=== PATIENT | female | born 1995 | race Caucasian/White ===

== ENCOUNTER 2016-06-06 23:42 | Emergency (ER) | payer OTHER ==
[~2016-06-06] VITALS: Ht 152.4 cm; Wt 63.2 kg
[2016-06-06 23:47] VITALS: TEMP 36.7; O2SAT 94; Ht 152.4 cm; Wt 63.2 kg
[2016-06-07 00:29] LABS: BASO % 0.2 %; BASO ABS # 0.02 K/uL (0-0.2); COMPLETE YES; EOS % 0.2 %; HEMATOCRIT 37.1 % (37-47); IG% 0.3 %; LYMPH % 15.2 %; MEAN CELL VOLUME 89.6 fL (80-100); MEAN CORPUSCULAR HEMOGLOBIN 30.7 pg (25-34); MEAN CORPUSCULAR HGB CONC 34.2 g/dl (32-36); MEAN PLATELET VOLUME 9.3 fL (7.4-10.4); MONO % 8.1 %; PLATELET COUNT 337 K/uL (130-400); RED BLOOD COUNT 4.14 M/uL (4.2-5.4); WHITE BLOOD COUNT 12.48 K/uL (4.8-10.8)
[2016-06-07 00:43] LABS: VEN BLD GAS O2 SATURATION < 60.0 %; VEN BLOOD GAS BASE EXCESS 0.6 mmol/L; VENOUS BLOOD GAS PCO2 59 mmHg (38.0-50.0); VENOUS BLOOD GAS PO2 28 mmHg
[2016-06-07 01:01] LABS: BUN/CREATININE RATIO 19.5 (10-20); CALCIUM 8.8 mg/dl (8.5-10.1); CREATININE 0.71 mg/dl (0.60-1.20)
[2016-06-07 01:06] LABS: POTASSIUM 3.6 mmol/L (3.5-5.1)
[2016-06-07 01:07] LABS: PREG INTERNAL NEGATIVE QC NEG CLEAR BACKGROUND; PREG INTERNAL POSITIVE QC POS CONTROL LINE
[2016-06-07 03:59] VITALS: BP 104/61; PULSE 91; O2SAT 98
--- NOTE | 2016-06-07 04:05 | EMERGENCY ROOM VISIT NOTE ---
History First contact with patient: 23:51 Chief Complaint: OVERDOSE (ACCIDENTAL) Stated Complaint: OVERDOSE Nursing Triage Summary: pt states she just got out of rehab last week and tonight she used heroin for the first time in over 90 days, pt's younger brother found her unresponsive and called ems, by the time ems arrived pt was awake. pt stated she only used a little bit and she has used heroin off and on for years. History of Present Illness The patient is a 21 year old female who presents to the Emergency Room with complaints of accidental heroin overdose tonight. Patient states she's been clean for 3 months and just got out of rehabilitation. Patient states she shot up heroin tonight. She was not trying to overdose. She states she took a small amount. Patient states her little brother found her and called EMS. She was not given any Narcan or anything else. Patient states she shot up at 9 PM. Patient denies chest pain, dyspnea, fever, chills, abdominal pain or any other medical complaints. Patient states she feels back to normal. No other drugs tonight. No alcohol. Review of Systems See HPI for pertinent positives & negatives. A total of 10 systems reviewed and were otherwise negative. Past Medical/Surgical History Medical Problems: (1) Asthma (2) Gestational diabetes mellitus (3) Normal (4) Vaginal delivery Family History Diabetes mellitus FH: cancer FH: gallbladder disease FH: heart disease FH: lung disease Hypertension Social History Smoking Status: Current Every Day Smoker Alcohol Use: none Drug Use: heroin Marital Status: single Housing Status: lives with family Occupation Status: employed Current/Historical Medications Unable to Obtain Active Prescriptions or Reported Meds Allergies Coded Allergies: No Known Allergies (Unverified , 07/14/14) Physical Exam Vital Signs Date Time Temp Pulse Resp B/P Pulse Ox O2 Delivery O2 Flow Rate FiO2 06/07/16 02:30 89 17 93/53 95 Nasal Cannula 2.5 06/07/16 02:00 86 16 100/63 97 Nasal Cannula 2.5 06/07/16 01:30 86 9 96/53 94 Nasal Cannula 2.5 06/07/16 01:00 94 15 109/55 92 Nasal Cannula 2.5 06/07/16 00:30 103 12 103/62 92 Nasal Cannula 2.5 06/07/16 00:00 100 13 121/71 96 Nasal Cannula 2.5 06/06/16 23:55 107 2//17 23:47 36.7 106 14 127/70 94 Room Air 06/06/16 23:47 94 Room Air Physical Exam VITALS: Vitals are noted on the nurse's note and reviewed by myself. Vital signs stable. GENERAL: Pleasant female tearful, in no acute distress, nondiaphoretic, well- developed well-nourished. SKIN: Bilateral arms multiple track mcgowan The rest of the skin was without rashes, erythema, edema, or bruising. There is no tenting of the skin. Capillary reflex less than 2 seconds. HEAD: Normocephalic atraumatic. EARS: External auditory canals clear, tympanic membranes pearly lenz without erythema or effusion bilaterally. EYES: Pupils equal round and reactive to light and accommodation. Conjunctivae without injection, sclerae without icterus. Extraocular movements intact. NOSE: Patent, turbinates without inflammation or discharge. MOUTH: Mucous membranes moist. Pharynx without erythema or exudate. Uvula midline. Airway patent. Tongue does not deviate. NECK: Supple without nuchal rigidity. No lymphadenopathy. No thyromegaly. Cervical spine is nontender. No JVD. HEART: Regular rate and rhythm without murmurs gallops or rubs. LUNGS: Clear to auscultation bilaterally without wheezes, rales or rhonchi. No dullness to percussion. No retractions or accessory muscle use. ABDOMEN: Positive bowel sounds x 4. Normal tympanic percussion. Soft, nontender, without masses or organomegaly. Cedeno sign negative. No guarding or rebound tenderness. MUSCULOSKELETAL: No muscle atrophy, erythema, or edema noted. NEURO: Patient was alert and oriented to person place and time. Normal sensation to light and sharp touch. No focal neurological deficits. Medical Decision & Procedures Laboratory Results 06/07/16 00:00 Red Blood Count 4.14, Mean Corpuscular Volume 89.6, Mean Corpuscular Hemoglobin 30.7, Mean Corpuscular Hemoglobin Concent 34.2, Mean Platelet Volume 9.3, Neutrophils (%) (Auto) 76.0, Lymphocytes (%) (Auto) 15.2, Monocytes (%) (Auto) 8.1, Eosinophils (%) (Auto) 0.2, Basophils (%) (Auto) 0.2, Neutrophils # (Auto) 9.48, Lymphocytes # (Auto) 1.90, Monocytes # (Auto) 1.01, Eosinophils # (Auto) 0.03, Basophils # (Auto) 0.02 06/07/16 00:00 Test 06/07/16 00:00 06/07/16 00:05 06/07/16 00:35 White Blood Count 12.48 K/uL (4.8-10.8) Red Blood Count 4.14 M/uL (4.2-5.4) Hemoglobin 12.7 g/dL (12.0-16.0) Hematocrit 37.1 % (37-47) Mean Corpuscular Volume 89.6 fL (80-100) Mean Corpuscular Hemoglobin 30.7 pg (25-34) Mean Corpuscular Hemoglobin Concent 34.2 g/dl (32-36) Platelet Count 337 K/uL (130-400) Mean Platelet Volume 9.3 fL (7.4-10.4) Neutrophils (%) (Auto) 76.0 % Lymphocytes (%) (Auto) 15.2 % Monocytes (%) (Auto) 8.1 % Eosinophils (%) (Auto) 0.2 % Basophils (%) (Auto) 0.2 % Neutrophils # (Auto) 9.48 K/uL (1.4-6.5) Lymphocytes # (Auto) 1.90 K/uL (1.2-3.4) Monocytes # (Auto) 1.01 K/uL (0.11-0.59) Eosinophils # (Auto) 0.03 K/uL (0-0.5) Basophils # (Auto) 0.02 K/uL (0-0.2) RDW Standard Deviation 42.0 fL (36.4-46.3) RDW Coefficient of Variation 12.9 % (11.5-14.5) Immature Granulocyte % (Auto) 0.3 % Immature Granulocyte # (Auto) 0.04 K/uL (0.00-0.02) Anion Gap 10.0 mmol/L (3-11) Est Creatinine Clear Calc Drug Dose 102.3 ml/min Estimated GFR () 139.1 Estimated GFR (Non- 120.1 BUN/Creatinine Ratio 19.5 (10-20) Calcium Level 8.8 mg/dl (8.5-10.1) Human Chorionic Gonadotropin, Qual NEG (NEG) Ethyl Alcohol mg/dL < 3.0 mg/dl (0-3) Venous Blood pH 7.30 (7.36-7.41) Venous Blood Partial Pressure CO2 59 mmHg (38.0-50.0) Venous Blood Partial Pressure O2 28 mmHg Venous Blood HCO3 28 mmol/L Venous Blood Oxygen Saturation < 60.0 % Venous Blood Base Excess 0.6 mmol/L ED Course Prior records/ancillary studies reviewed. Triage Nursing notes reviewed. Additional history obtained from EMS The patient's history was concerning for heroin overdose Differential diagnosis: Etiologies such as toxicologic, infection, hypoglycemia, electrolyte abnormalities, cardiac sources, intracerebral event, neurologic, as well as others were entertained. Physical examination: The patient had normal sensorium. No trauma noted. ER treatment provided: Patient ate a full meal and drink without difficulties On reassessment the patient was stable and improving. Diagnostic interpretation by me: The labs revealed no worrisome anemia or electrolyte abnormality This appears to be consistent with an isolated overdose of heroin that was accidental. Patient was observed for multiple hours with no abnormalities. She was given information on drug and alcohol classes and rehabilitation. She declined rehabilitation today. Patient is advised follow-up family medicine in a few days or here in the ER sooner for chest pain, difficulty breathing, fevers , worsening signs or symptoms or as needed. By the evaluation outlined above emergent etiologies such as infection, hypoglycemia, electrolyte abnormalities, cardiac sources, intracerebral event, neurologic,as well as others were deemed relatively unlikely. The pt informed about the findings as listed above. All questions were answered and pleased with the treatment. Return instructions were outlined and the patient was discharged in stable condition. Referral: The patient was referred back to their primary care physician for follow-up in 2 to 3 days for a recheck of the current condition. Case reviewed with my attending Medical Decision As above Impression Primary Impression: Heroin overdose Departure Information Prescriptions Unable to Obtain Active Prescriptions or Reported Meds Referrals No Doctor, Assigned (PCP) Patient Instructions My [facility] Problem Qualifiers Primary Impression: Heroin overdose Encounter type: initial encounter Injury intent: accidental or unintentional Qualified Codes: T40.1X1A - Poisoning by heroin, accidental ( unintentional), initial encounter
== END 2016-06-07 04:13 | disposition home or self-care (01) ==
LOC: EDBD 23:42 → C.EDB 23:43
DX: T40.1X1A Poisoning by heroin, accidental (unintentional), initial encounter (principal); F17.200 Nicotine dependence, unspecified, uncomplicated

== ENCOUNTER 2016-06-18 18:08 | Emergency (ER) | payer OTHER ==
[~2016-06-18] VITALS: Ht 152.4 cm; Wt 60.5 kg
[2016-06-18 18:18] VITALS: Ht 152.4 cm; Wt 60.5 kg
[2016-06-18] MEDS ORDERED: AZITHROMYCIN 250 MG TAB PO STA (18:57)
[2016-06-18] MEDS ORDERED: CEFTRIAXONE SOD 350MG/ML 1 GM VIAL IM STA (18:57)
--- NOTE | 2016-06-18 19:31 | EMERGENCY ROOM VISIT NOTE ---
History First contact with patient: 18:36 Chief Complaint: PELVIC PAIN Stated Complaint: SEVERE ABDOMINAL PAIN History of Present Illness The patient is a 21 year old female who presents to the Emergency Room with complaints of vaginal discharge and vaginal sores. The patient states that she has one regular sexual partner. She does not use protection. The patient states that 2 days ago she noticed sores on her external genitalia and yellow vaginal discharge. She states she has had diffuse lower abdominal cramping. She rates her discomfort a 6/10. She states her last period was 2 weeks ago. She denies any nausea or vomiting. She denies any fevers. She denies any dysuria, urgency or frequency. She denies any history of sexual transmitted infection. Review of Systems A 10 system review of systems was completed with positives and pertinent negatives listed in the HPI. Past Medical/Surgical History Medical Problems: (1) Asthma (2) Gestational diabetes mellitus (3) Normal (4) Vaginal delivery Family History Diabetes mellitus FH: cancer FH: gallbladder disease FH: heart disease FH: lung disease Hypertension Social History Smoking Status: Current Every Day Smoker Alcohol Use: none Drug Use: heroin Marital Status: single Housing Status: lives with family Occupation Status: employed Current/Historical Medications Scheduled Acyclovir (Acyclovir), 1 TAB PO TID Cephalexin Monohydrate (Keflex), 500 MG PO QID Doxycycline (Monohydrate) (Doxycycline Monohydrate), 100 MG PO BID Allergies Coded Allergies: No Known Allergies (Unverified , 07/14/14) Physical Exam Vital Signs Date Time Temp Pulse Resp B/P Pulse Ox O2 Delivery O2 Flow Rate FiO2 06/18/16 20:35 108 18 124/76 99 06/18/16 19:59 37.2 06/18/16 18:18 37.7 107 20 132/77 100 Room Air Physical Exam VITALS: Vitals are noted on the nurse's note and reviewed by myself. Vital signs stable. GENERAL: This is a 21-year-old female, in no acute distress, nondiaphoretic, well-developed well-nourished. SKIN: The patient has pinpoint excoriations diffusely over the lower extremities which she states that she "picks." There is no tenting of the skin. Capillary reflex less than 2 seconds. HEAD: Normocephalic atraumatic. EARS: External auditory canals clear, tympanic membranes pearly lenz without erythema or effusion bilaterally. EYES: Pupils equal round and reactive to light and accommodation. Conjunctivae without injection, sclerae without icterus. Extraocular movements intact. NOSE: Patent, turbinates without inflammation or discharge. MOUTH: Mucous membranes moist. Tonsils are not enlarged. Pharynx without erythema or exudate. Uvula midline. Airway patent. Tongue does not deviate. NECK: Supple without nuchal rigidity. No JVD. HEART: Regular rate and rhythm without murmurs gallops or rubs. LUNGS: Clear to auscultation bilaterally without wheezes, rales or rhonchi. No retractions or accessory muscle use. ABDOMEN: Positive bowel sounds x 4. Soft, mild diffuse lower tenderness, without masses or organomegaly. Cedeno sign negative. : There are multiple ulcerated lesions over the external genitalia. There are tender to palpation. There is scant yellow vaginal discharge. There is no cervical motion tenderness. There are no adnexal masses or tenderness. MUSCULOSKELETAL: No muscle atrophy, erythema, or edema noted. Full range of motion in all extremities. Normal gait. Strength 5/5 throughout. NEURO: Patient was alert and oriented to person place and time. No focal neurological deficits. Medical Decision & Procedures Laboratory Results Test 06/18/16 18:15 06/18/16 18:50 Urine Color DK YELLOW Urine Appearance CLOUDY (CLEAR) Urine pH 6.0 (4.5-7.5) Urine Specific [place] 1.024 (1.000-1.030) Urine Protein 1+ (NEG) Urine Glucose (UA) NEG (NEG) Urine Ketones 1+ (NEG) Urine Occult Blood TRACE (NEG) Urine Nitrite POS (NEG) Urine Bilirubin NEG (NEG) Urine Urobilinogen POS (NEG) Urine Leukocyte Esterase MODERATE (NEG) Urine WBC (Auto) >30 /hpf (0-5) Urine RBC (Auto) 0-4 /hpf (0-4) Urine Hyaline Casts (Auto) 1-5 /lpf (0-5) Urine Epithelial Cells (Auto) >30 /lpf (0-5) Urine Bacteria (Auto) 4+ (NEG) Urine Pathogenic Casts /lpf (0) Urine Test NEG (NEG) Date/Time Source Procedure Growth Status 06/18/16 18:50 Vaginal Swab Trichomonas Preparation - Final Complete Medications Administered Medications (Trade) Dose Ordered Sig/Keyshawn Route Start Time Stop Time Status Last Admin Dose Admin Azithromycin (Zithromax Tab) 1,000 mg NOW STAT PO 06/18/16 18:57 06/18/16 18:59 DC 06/18/16 19:08 1,000 MG Ceftriaxone Sodium (Rocephin Im) 250 mg NOW STAT IM 06/18/16 18:57 06/18/16 18:59 DC 06/18/16 19:08 250 MG ED Course The patient was seen and examined. Previous visits were reviewed. The patient initially had a very low-grade fever. However, I rechecked her temperature and nursing staff rechecked her temperature and it was normal. She does not have any significant abdominal tenderness to suggest acute abdomen. The patient appears to have an outbreak of primary genital herpes. She also has vaginal discharge. She does engage in unprotected intercourse. She reports 1 partner. The patient was given 250 mg IM Rocephin She was given 1 g oral Zithromax She will be placed on Keflex for potential urinary tract infection. This may represent true urinary tract infection versus possible contamination She'll be placed on doxycycline to cover for potential PID She'll be given a prescription for acyclovir. She was advised to notify her sexual contacts. She was advised to follow-up with [facility], her family doctor or local free clinic for additional testing or counseling. She should return to the ER if any worsening symptoms. Medical Decision DIFFERENTIAL DIAGNOSIS: Pelvic inflammatory disease, ovarian cyst, ovarian torsion, ovarian rupture, , ectopic , endometriosis, endometritis, urinary tract infection, ruptured ovarian cyst, tubo-ovarian abscess, among others. Impression Primary Impression: Herpes Additional Impression: Vaginal discharge Departure Information Dispostion Home / Self-Care Condition GOOD Prescriptions Cephalexin Monohydrate (Keflex) 500 Mg Cap 500 MG PO QID for 5 Days, #20 CAP Prov: Leana Harris PA-C 06/18/16 Doxycycline (Monohydrate) (DOXYCYCLINE MONOHYDRATE) 100 Mg Tab 100 MG PO BID for 14 Days, #28 CAP Prov: Leana Harris PA-C 06/18/16 Acyclovir (ACYCLOVIR) 400 Mg Tab 1 TAB PO TID for 10 Days, #30 TAB Prov: Leana Harris PA-C 06/18/16 Referrals No Doctor, Assigned (PCP) Patient Instructions Herpes, My [facility] Additional Instructions Ibuprofen 600 mg every 6-8 hours for pain Acyclovir every 8 hours for 10 days to treat the primary outbreak of herpes Doxycycline every 12 hours for 14 days to treat potential pelvic infection Let your sexual contacts know of the potential sexually transmitted infection You may contact the emergency department [phone] to check on the results of the cultures if you wish in 5-7 days Return with any worsening symptoms Follow-up with [facility]/family doctor/free clinics for additional testing Problem Qualifiers
[2016-06-18 19:47] LABS: URINE APPEARANCE CLOUDY (CLEAR); URINE COLOR DK YELLOW; URINE EPITHELIAL CELL AUTO >30 /lpf (0-5); URINE NITRITE POS (NEG); URINE SPECIFIC GRAVITY 1.024 (1.000-1.030); UROBILINOGEN POS (NEG); ZZUR CULT IF INDIC CLEAN CATCH YES
[2016-06-18 19:59] VITALS: TEMP 37.2
[2016-06-18 20:00] LABS: MANUAL MICROSCOPIC REQUIRED? NO; REVIEW REQ? YES; URINE BILIRUBIN NEG (NEG)
[2016-06-18] MEDS ORDERED: DOXY100T17 PO (20:04)
[2016-06-18] MEDS ORDERED: ACYC400T PO (20:04)
[2016-06-18] MEDS ORDERED: CEPH500C PO (20:11)
[2016-06-18 20:35] VITALS: BP 124/76; PULSE 108; O2SAT 99
--- NOTE | 2016-06-20 12:02 | Pharmacy Progress Note ---
ED Pharmacist Culture FollowUp Date of Service: Jun 20, 2016. Patient was sent home with a prescription for Keflex 500mg PO QID x 5 days, which should cover the E coli growing from the patient's URINE culture. No action required at this time.
[2016-06-21 00:25] LABS: CHLAMYDIA TRACH RNA*** NOT DETECTED (NOT DETECTED); GC (NEIS GONORRHOEAE)RNA** NOT DETECTED (NOT DETECTED)
[2016-06-24 14:48] LABS: HERPES SIMPLEX CULT SOURCE GENITAL-VAGINAL; HERPES SIMPLEX VIRUS CULT ISOLATED (NOT ISOLATED)
[2016-06-25 11:44] LABS: HSVTYPE2REFLEX ONLY!DON'T ORDR ISOLATED (NOT ISOLATED)
== END 2016-06-18 20:37 | disposition home or self-care (01) ==
LOC: C.EDB 18:09 → C.EDA 20:37
DX: B00.9 Herpesviral infection, unspecified (principal); N89.8 Other specified noninflammatory disorders of vagina; F17.200 Nicotine dependence, unspecified, uncomplicated; J45.909 Unspecified asthma, uncomplicated